=== PATIENT | female | born 1965 | race Caucasian/White ===

== ENCOUNTER 2024-02-16 17:21 | Emergency (ER) | payer BC ==
[~2024-02-16] VITALS: Ht 162.6 cm; Wt 83.9 kg
[2024-02-16 17:46] VITALS: BP_SYST 134; PULSE 91; RESP 15; TEMP 97.4; O2SAT 96
[2024-02-16] MEDS ORDERED: METH-776 PO (18:42)
[2024-02-16 18:51] VITALS: BP_SYST 134; PULSE 91; RESP 15; TEMP 97.4; O2SAT 96
== END 2024-02-16 18:52 | disposition home or self-care (01) ==
LOC: SED 17:21
DX: M13.841 Other specified arthritis, right hand (principal)
CPT/HCPCS: 99283